=== PATIENT | male | born 1980 | race African-American/Black ===

== ENCOUNTER 2019-02-08 12:21 | Emergency (ER) | payer OTHER ==
[~2019-02-08] VITALS: Ht 175.3 cm; Wt 63.5 kg
[2019-02-08 12:44] VITALS: BP 172/101
== END 2019-02-08 15:33 | disposition left against medical advice (07) ==
LOC: ER 12:40
DX: K08.89 Other specified disorders of teeth and supporting structures (principal); Z53.21 Procedure and treatment not carried out due to patient leaving prior to being seen by health care provider